=== PATIENT | male | born 1960 | race Caucasian/White ===

== ENCOUNTER 2017-12-22 07:51 | Emergency (ER) | payer OTHER, SELFPAY ==
[2017-12-22 07:52] VITALS: BP 158/107; PULSE 64; RESP 16; TEMP 36.5; O2SAT 97; BMI 25.4
--- NOTE | 2017-12-22 08:06 | EKG12_ITS ---
Test Reason : NAUSEA Blood Pressure : / mmHG Vent. Rate : 066 BPM Atrial Rate : 066 BPM P-R Int : 176 ms QRS Dur : 096 ms QT Int : 364 ms P-R-T Axes : 033 015 052 degrees QTc Int : 381 ms Normal sinus rhythm Normal ECG Confirmed by ROSSY SHAH ([id number]), non linear editor MARY PEÑA ([id number] on 12/24/2017 2:26:01 PM Referred By: KINGA Confirmed By:ROSSY SHAH
--- NOTE | 2017-12-22 08:16 | ED.DCSUM_ITS ---
- ER Visit Summary Date of Service: 12/22/17 Chief Complaint: Lightheaded History of Present Illness: The patient is a 57 M who is formerly a patient of Dr. Muñoz before he retired. Patient reports that for the past week he has felt more anxious than usual. States that typically he takes Xanax 1 every other week. Over the past week he has had to take this more frequently. He reports that today he feels anxious, agitated, is having palpitations, and feels mildly short of breath. He reports that all of the symptoms are relieved with calming down. Patient reports that this morning while standing at work for a few minutes he became lightheaded. He has not passed out. This does not worsen with standing. He denied any chest pain. Is complaining of mild nausea. He denies any other complaints. Physical Examination: Vitals: Stable. Afebrile. General: Well-nourished and well-developed. Head: Normocephalic atraumatic. Neck: Supple, no lymphadenopathy. No JVD. Nontender. Cardiovascular: Regular rate and rhythm. No murmurs. Respiratory: No respiratory distress. Clear to auscultation bilaterally. Abdominal: Soft, nontender, nondistended, normal bowel sounds. No guarding, rebound, or peritoneal signs. Back: Nontender. Extremities: Nontender, no edema. Skin: Normal color, no rash. Neurologic: Alert and oriented ?3. Cranial nerves II through XII are intact. Normal strength and sensation. Psych: Normal affect. Test Results: EKG is sinus at 65 with no ischemic changes. Troponin is negative. CBC is normal. Chem-7 is normal. Emergency Department Course and Treatment: Patient was given a liter bolus of normal saline. He had negative orthostatic vital signs while here. Treatment Plan: Patient has asked for a daily treatment for anxiety. He will be placed on Paxil. He is asking for referral to Dr. Conroy. He is instructed to follow-up with her within 1 week for another exam. Return to the emergency department for any worsening symptoms. Disposition: To home in improved and stable condition. Impression: 1. Anxiety. 2. Lightheaded. This note was generated with [employer] software. It may contain incorrect words, spelling, and punctuation that were not noted in review of the chart prior to signing ED Disposition - Plan for ED Patient: Chief Complaint: Dizziness Instructions: ED Stress React Prescriptions: ALPRAZolam [Xanax] 0.5 mg PO BID PRN PRN #30 tablet PRN Reason: Anxiety Paroxetine HCl [Paxil] 20 mg PO DAILY #30 tablet Referrals: Evie Conroy DO [STAFF PHYSICIAN] - 1 Week
[2017-12-22 08:31] LABS: Absolute Lymphocyte Count 1.82 X10^3/ul (0.83-4.51); Absolute Neutrophil Count 3.8 X10^3/uL (2.0-7.7); Basophil# 0.02 X10^3/uL; Basophil% 0.3 % (0-1); Eosinophil# 0.18 X10^3/uL; Eosinophils% 2.8 % (0-5); Hematocrit 48.5 % (40-54); Hemoglobin 16.4 g/dl (13.0-16.5); Lymphocyte # 1.82 X10^3/ul (4.0); Lymphocyte % 28.3 % (19-41); Mean Corp Hgb Conc 33.8 g/gl (32-36); Mean Corpuscular Hgb 30.7 pg (27.0-32.0); Mean Corpuscular Volume 90.7 fL (80-94); Mean Platelet Vol. 9.2 fl (6.2-12.0); Monocyte# 0.56 X10^3/uL; Monocyte% 8.7 % (0-10); Neutrophil # 3.83 X10^3/uL (2.7-7.7); Neutrophil % 59.7 % (47-70); Platelet Count 253 K/mm3 (150-450); RBC Distribution Width CV 12.5 % (11.6-14.6); RBC Distribution Width SD 41.3 fl (35.1-43.9); Red Blood Count 5.35 M/mm3 (4.6-6.2); White Blood Count 6.4 K/mm3 (4.4-11.0)
[2017-12-22 08:34] LABS: POSITIVE COUNT NO; POSITIVE DIFFERENTIAL NO; POSITIVE MORPHOLOGY NO
[2017-12-22 08:41] VITALS: BP 135/99; BP 149/105; BP 158/98; PULSE 77; PULSE 78; PULSE 85
[2017-12-22] MEDS: 0.9% Normal Saline 1,000 ML 1000 ML IV (08:42)
[2017-12-22 08:47] LABS: Anion Gap 6 (5-15); BUN 15 mg/dL (7-18); BUN/Creat Ratio 15.1 RATIO (10-20); Calcium,Total 8.7 mg/dL (8.5-10.1); Chloride 105 mmol/L (98-107); Creatinine, Serum 0.99 mg/dL (0.70-1.30); EST Glomerular Filtration Rate 82 mL/min (>60); Est Glom Filt Rate - Afr Amer 99 mL/min (>60); Estimated Creatinine Clearance 85.57 ml/min; Glucose 89 mg/dL (74-106); Potassium 3.7 mmol/L (3.5-5.1); Sodium Level 142 mmol/L (136-145)
[2017-12-22 09:18] VITALS: BP 143/99; PULSE 78; RESP 16; O2SAT 97
== END 2017-12-22 09:28 | disposition home or self-care (01) ==
PROVIDERS: Emergency Provider Emergency Medicine
DX: F41.9 Anxiety disorder, unspecified (principal); R42 Dizziness and giddiness; F17.220 Nicotine dependence, chewing tobacco, uncomplicated; Z79.899 Other long term (current) drug therapy
CPT/HCPCS: 80048; 84484; 85025; 93005; 99285